=== PATIENT | male | born 1945 | race Caucasian/White ===

== ENCOUNTER 2021-12-24 15:31 | Emergency (ER) | payer MEDICARE ==
[~2021-12-24 15:31] MED LIST: EPINEPHrine 10 ML SYRINGE (0.1 MG/ML) ONE
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
[2021-12-24 15:51] VITALS: PULSE 0; RESP 0
== END 2021-12-24 21:30 | disposition expired ==
LOC: EC 15:31
DX: I46.9 Cardiac arrest, cause unspecified (principal)
CPT/HCPCS: 99285